=== PATIENT | female | born 1945 | race Caucasian/White ===

== ENCOUNTER → 2016-12-11 | Outpatient (CLI) | payer OTHER ==
[~2016-12-11] MED LIST: AMITRIPTYLINE H25 MG PO; AMOXICILLIN PO; ANTIVERT PO; ATARAX PO; BACTRIM DS TABL1 TA2 PO; BENADRYL PO; CLARITHROMYCIN500 MG PO; CLONAZEPAM0.5 MG PO; CYMBALTA30 MG PO; DARVOCET-N 1001 TAB PO; HYDROCHLOROTHIA25 MG PO; LEVAQUIN750 MG PO; LORTAB 5/500 TA1 TA2 PO; MICROZIDE12.5 M1 PO; NORVASC PO; OMEPRAZOLE40 MG PO; PEPCID AC20 M2 PO; POTASSIUM CHLO10 MEQ PO; PREDNISONE PO; RANITIDINE HCL150 M1 PO; TOPAMAX25 MG PO; TOPIRAMATE25 MG PO; TOPROL XL50 MG PO; VISTARIL PO; XANAX0.5 MG PO; ZANTAC150 MG PO; ZESTRIL5 MG PO
--- NOTE | ~2016-12-11 | MR113 ---
[facility] A Service of [facility] & [facility] / [facility] RADIOLOGY TEXT RESULTS PATIENT: LUIS WEBER LOCATION: [facility] : 45 UNIT #: [id number] AGE: [address]: Rhonda Bedolla MD SEX: F ORDER DR: [id number] [address] [address] [id number] MR#: [id number] Acc #: [id number] NAME: LUIS WEBER. : 1945 SEX: F STUDY DATE/TIME: 12/11/2016 11:42 UNIT: [facility] ROOM: STUDY DESCRIPTION: MR Lumbar Wo Contrast Attending Physician: Rhonda Bedolla M.D. Referring Physician: Rhonda Bedolla M.D. Ordering Physician: Rhonda Bedolla M.D. Primary Care Physician: Rhonda Bedolla M.D. MRI CENTER REPORT This report is preliminary unless electronic signature is present. EXAM MRI of the lumbar spine without contrast dated 12/11/2016. COMPARISON MRI lumbar spine without contrast dated 11/14/2011. HISTORY Chronic low back pain for about 7 years, progressively worsening since prior MRI study. History of scoliosis, bilateral sciatica(right worse than left). FINDINGS Multisequence, multiplanar imaging of the lumbar spine was obtained without contrast. There is severe levoscoliosis of the thoracolumbar spine with the apex at T12-L1. Pina angle measured from the superior endplate of T11 to the inferior endplate of L2 is 44 degrees. Pre and paravertebral soft tissues do not demonstrate acute abnormality. Previously noted mild fatty changes within the paraspinal muscles, particularly in the lower lumbar spine extending into the sacral level is again seen. T12-L1: Disc osteophyte complex with mild right neural foraminal narrowing. Suspicious tiny right subarticular protrusion with no canal stenosis. L1-2: Disc osteophyte complex which is slightly prominent in the left foraminal to extraforaminal region with minimal left neural foraminal encroachment. No canal stenosis. L2-3, L3-4: Disc osteophyte complex which is asymmetrically prominent in the left foraminal to extraforaminal region suspicious for superimposed broad-based protrusion. Mild to moderate left L3-4 facet hypertrophic changes are also noted with minimal right L3-4 and bilateral L2-3 facet STS. [facility] A Service of [facility] & [facility] / [facility] RADIOLOGY TEXT RESULTS PATIENT: LUIS WEBER LOCATION: [facility] : 45 UNIT #: [id number] AGE: [address]: Rhonda Bedolla MD SEX: F ORDER DR: changes. There is borderline sized to mild canal stenosis at L3-4 with moderate left L3-4 and L2-3 neural foraminal narrowing, worse at L3-4. L4-5: Disc osteophyte complex which is asymmetrically prominent in the left foraminal to extraforaminal region. Mild bilateral facet changes are noted, worse on the left. There is moderate left neural foraminal narrowing with mild left lateral recess encroachment and borderline-sized canal. L5-S1: Disc osteophyte complex which is asymmetrically prominent in the left foraminal to extraforaminal region with moderate to severe left neural foraminal narrowing and mild left lateral recess encroachment. No canal stenosis. IMPRESSION 1. Degenerative changes are noted at multiple levels of the lumbar spine, mild. There is levoscoliosis noted with the apex at T12-L1. Pina angle measured from the superior endplate of T11 to the inferior endplate of L2 is about 44 degrees. 2. No significant interval worsening is noted in the last 5 years given the differences in slice selection. Dictated by... Marylou Harvey M.D. THIS IS AN ELECTRONICALLY VERIFIED REPORT Marylou Harvey M.D. at 12/14/2016 3:34 PM CPR/tmw TD: 12/13/2016 15:02 JOB #: [id number] MRI CENTER REPORT Page 1 of 1
== END | disposition home or self-care (01) ==
LOC: SMRI 11:12
DX: M51.16 Intervertebral disc disorders with radiculopathy, lumbar region (principal); M41.9 Scoliosis, unspecified; R29.898 Other symptoms and signs involving the musculoskeletal system; M47.26 Other spondylosis with radiculopathy, lumbar region
CPT/HCPCS: 72148